=== PATIENT | female | born 1970 ===

== ENCOUNTER 2018-04-14 07:25 | Inpatient (IN) | payer BC, SELFPAY ==
[2018-04-14 07:52] VITALS: BMI 33.4
[2018-04-14] MEDS ORDERED: Zolpidem Tartrate 5 MG TAB PO PRN (09:15)
[2018-04-14] MEDS ORDERED: HYDROcodone/Acetaminophen 5/325 mg Tablet PO PRN (09:16)
[2018-04-14 09:31] LABS: #Eosinphils 0.2 thou/uL (0.0-0.7); #Lymphocytes 1.8 thou/uL (1.20-3.40); #Neutrophils 13.7 thou/uL (1.40-6.50); %Basophils 0.2 % (0.0-1.0); %Eosinophils 0.9 % (0.0-10.0); %Lymphocytes 10.7 % (21.0-51.0); %Monocytes 6.1 % (0.0-10.0); %Neutrophils 82.2 % (42.0-75.0); Hemoglobin 12.6 g/dL (12.0-16.0); Mean Corpuscular HGB CONC 33.7 g/dL (32.0-36.0); Mean Corpuscular Hemoglobin 30.9 pg (27.0-31.0); Mean Corpuscular Volume 91.9 fl (81.0-99.0); Mean Platelet Volume 8.4 fL (7.4-10.4); Platelet Count 224 thou/uL (130-400); RBC Distribution Width 11.6 % (11.5-14.5); Red Blood Cell (RBC) Count 4.09 mill/uL (4.20-5.40); White Blood Cell (WBC) Count 16.7 thou/uL (4.8-10.8)
[2018-04-14] MEDS ORDERED: Ondansetron HCl/PF 4 MG/2 ML Vial IVP PRN (09:42)
[2018-04-14] MEDS: Vancomycin HCl 1 GM in Premix Bag 1 BAG IVPB SCH ×2 (10:43→20:27)
--- NOTE | 2018-04-14 11:01 | ULT ---
SOFT TISSUE ULTRASOUND: HISTORY: Possible abscess. 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 TECHNIQUE: Sagittal and transverse imaging of the soft tissues is performed. FINDINGS: Static image demonstrates soft tissue edema. No evidence of a well-formed abscess. IMPRESSION: No sonographic evidence of abscess. There is evidence of edema. POS: [facility]
[2018-04-14] MEDS: HYDROcodone/Acetaminophen 5/325 mg Tablet PO PRN (12:00)
[2018-04-14] MEDS ORDERED: Clindamycin/D5W 600 MG in Premix Bag 1 BAG IVPB SCH (14:00)
[2018-04-14] MEDS: Ondansetron HCl/PF 4 MG/2 ML Vial IVP PRN (16:46)
--- NOTE | 2018-04-14 19:02 | CON ---
DATE OF CONSULTATION: 04/14/2018 REASON FOR CONSULTATION: Inflammatory process, upper mid back region. HISTORY OF PRESENT ILLNESS: A 47-year-old patient who has a history of prior skin abscesses in the p ast, otherwise fairly healthy general status. She had recently vacationed in [place] with family. Du ring the stay, she noticed what she describes as a pimple in the back. She has her daughter to squee ze it. Following that, she developed a progression of inflammatory changes. On the way back, she en ded up in [facility] and she stayed there in observation for about 24 hours. She recei orlin vancomycin, clindamycin, and pain medication, IV fluids. The patient had an ultrasound done ther e which showed cellulitis with some hypodensity, but no focal abscess. CT scan with similar findings . There is evidence of steatohepatitis. Initial white cell count 23,000 and went down to 18,000. C reatinine was 0.6. Eventually because of persistence of symptoms, patient was transferred to [facility]. She is currently receiving clindamycin and vancomycin. She is not feeling very well, a little bit of headaches, no visual symptoms, sore throat, odynophagia, dysphagia. Pain in the area of inflammatory change in the upper mid back region. No lymphadenopathy. No joint inflammatory act ivity. S1, S2, regular rate. Abdomen is soft, not distended or tender. No ascites. No bladder dis tention. No other joint inflammatory activity. Neuro examination, nonfocal. PAST MEDICAL HISTORY: Skin abscesses in the past. ALLERGIES: Negative. CURRENT MEDICATIONS: Vancomycin, clindamycin, hydrocodone, IV fluids. FAMILY HISTORY: Noncontributory. SOCIAL HISTORY: Never a smoker. 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 PHYSICAL EXAMINATION: VITAL SIGNS: Temperature normal. BP 140/90, pulse 79, respirations 16-32, O2 sat 96%. GENERAL: Appears somewhat upset about the time that is taken to get better. No lymphadenopathy. SKIN: Shows the area of erythema with induration in the mid back region. This measures about 13 cm in length x 6 cm in width. There is one area where there is a small little incision made, but no thania inage is noted. It seems to have already closed. HEENT: Ocular movements conjugate. Oral cavity normal. NECK: Supple. LUNGS: With symmetric clear breath sounds. CARDIOVASCULAR: S1, S2, regular rate without murmurs. No S3, S4. ABDOMEN: Soft and not distended or tender. No ascites. GENITOURINARY: No bladder distention or organomegaly. EXTREMITIES: No joint inflammatory activity. Pulses 2+ in dorsalis pedis. NEUROLOGIC: Nonfocal. LABORATORY DATA: White cell count 16.7, hemoglobin 12, platelets 224 with 82% neutrophils. The chem istry from [facility] was not remarkable. ASSESSMENT AND PLAN: History of prior skin abscesses, now with what appears to be another area of ph legmon turn into a skin abscess likely due to either methicillin-sensitive Staphylococcus aureus or m ethicillin-resistant Staphylococcus aureus. Continue vancomycin alone, discontinue clindamycin and a djust levels of vancomycin to a target trough 15-20 mcg/mL, patient most likely will need surgical de bridement. She does not want to have that done at this point in time. I offered surgical consultati on. The patient would like to wait.
[2018-04-14] MEDS: Fentanyl 100 MCG/2 ML VIAL SLOW IVP PRN (20:25)
[2018-04-14] MEDS: Doxycycline 100 MG CAP PO SCH (20:25)
[2018-04-15] MEDS: Ondansetron HCl/PF 4 MG/2 ML Vial IVP PRN ×4 (00:32→22:36)
[2018-04-15] MEDS: Fentanyl 100 MCG/2 ML VIAL SLOW IVP PRN ×5 (00:51→22:36)
[2018-04-15 04:55] LABS: #Eosinphils 0.2 thou/uL (0.0-0.7); #Monocytes 0.9 thou/uL (0.11-0.59); #Neutrophils 10.8 thou/uL (1.40-6.50); %Basophils 0.3 % (0.0-1.0); %Eosinophils 1.5 % (0.0-10.0); %Monocytes 6.2 % (0.0-10.0); Hemoglobin 12.7 g/dL (12.0-16.0); Mean Corpuscular HGB CONC 33.5 g/dL (32.0-36.0); Mean Corpuscular Hemoglobin 30.7 pg (27.0-31.0); Mean Corpuscular Volume 91.7 fl (81.0-99.0); Mean Platelet Volume 8.6 fL (7.4-10.4); Platelet Count 259 thou/uL (130-400); RBC Distribution Width 11.6 % (11.5-14.5); Red Blood Cell (RBC) Count 4.15 mill/uL (4.20-5.40)
[2018-04-15 05:10] LABS: Anion Gap 12 mmol/L (10-20); BUN (Urea Nitrogen) 4 mg/dL (7.0-18.7); Calc. Creatinine Clearance 128 mL/min (70-130); Carbon Dioxide 23 mmol/L (22-29); Chloride 104 mmol/L (98-107); Estimated GFR-MDRD 84; Glucose 218 mg/dL (70-105); Potassium 3.9 mmol/L (3.5-5.1); Sodium 135 mmol/L (136-145)
[2018-04-15] MEDS: Doxycycline 100 MG CAP PO SCH ×2 (08:19→20:21)
[2018-04-15 09:14] LABS: Vancomycin, Trough 4.4 ug/mL
[2018-04-15] MEDS: Vancomycin HCl 1 GM in Premix Bag 1 BAG IVPB SCH (10:53)
--- NOTE | 2018-04-15 11:15 | HP ---
DATE OF ADMISSION: 04/14/2018 CHIEF COMPLAINT: Cellulitis/abscess right shoulder. HISTORY OF PRESENT ILLNESS: The patient is a 47-year-old female who prior to going to [facility] developed a pimple in the middle of her back. She has had these in the past. Her daughter expressed with the contents. She went ahead to [facility] and did swim in the____ ocean, they went into the underground pools there in [facility]. She wore a LifeVest and equipment was not very clean or sterile. She started developing the fever, came back to the [facility] and came [facility] for further care and evaluation. There, her white count on presentation was 28,000. She had a patch of erythema and redness on the right shoulder and the wound has stayed open that was developed by the daughter and it was oozing serosanguineous purulent material. The blood cultures were taken and antibiotics begun. When it was evident that the patient will need to stay more than a few hours, Dr. Nguyen was consulted for observation service there and employed IV vancomycin 1 gram q.12 hours, clindamycin 900 mg q.8 hours and doxycycline 100 mg b.i.d. This persisted for the next 24 hours trying to get improvement. During this time, the white count went down to 25, 000 then 23,000, but the patch of erythema and induration did not shrink and in fact enlarged somewhat, reattempts to I&D were unsuccessful through the small incision such that it was felt it would be better to put her in the hospital for further evaluation and treatment. On arrival to [place], her white count had come down to 18,000, but the patch of erythema, edema, and pain persisted. She was requiring hydrocodone and intermittent IV medication for pain management. PAST MEDICAL HISTORY: Significant for prior episodes of abscesses that were incised and drained in her past. She has a history of hypothyroidism. Her immunizations are up to date. PAST SURGICAL HISTORY: Includes appendectomy, section, cholecystectomy. FAMILY HISTORY: Noncontributory. SOCIAL HISTORY: She has never smoked. She does not drink alcohol and does not use illicit drugs. REVIEW OF SYSTEMS: Noncontributory. PHYSICAL EXAMINATION: VITAL SIGNS: At the time of admission, blood pressure 142/97, pulse 80, temperature 98.1, respirations 16, weight 188 pounds. GENERAL: This is a well-developed, well-nourished female, alert, oriented, and cooperative. HEENT: Normocephalic and atraumatic. Pupils equal, round, and reactive to light. Extraocular muscles are intact. TMs, nares, pharynx are clear. NECK: Supple. CHEST: Clear to auscultation. BACK: Reveals area of induration 4 cm x 8 cm indurated with peau d'orange skin texturing. No specific area of pointing available at this time. The patch is red, tender and warm. HEART: Regular rate and rhythm without murmur. BREAST: Deferred. ABDOMEN: Soft, nontender, without hepatosplenomegaly. GENITOURINARY: Deferred. EXTREMITIES: Without clubbing, cyanosis, edema. Normal range of motion present. SKIN: With the aforementioned changes in the back. NEUROLOGIC: Cranial nerves are intact. Gait normal. Sensory exam is intact. Mental status clear. Cerebellar function is intact. LABORATORY DATA: The lab work on admission showed WBC 16.7, hemoglobin 12.6, hematocrit 37.6 with platelets of 224. A pH at [facility] 7.3, pCO2 of 43.6. Lactate 1.9. Sodium 137, potassium 3.8, chloride 104, glucose 224, BUN 9 , creatinine 0.7. CT scans show soft tissue induration in the area of the infection and this was confirmed by ultrasound at [facility]. No specific areas of pocket accumulation of pus at this time. ASSESSMENT: Abscess/cellulitis right shoulder resistant to outpatient treatment. PLAN: Infectious Disease consultation with Dr. Machado has been obtained and his recommendation is to reduce antibiotic coverage simply down to vancomycin. Pain management, serial reevaluation and if there is failure to improve, we will get surgical consultation. [facility] [address] [facility]
--- NOTE | 2018-04-15 11:46 | PRG ---
DATE OF SERVICE: 04/15/2018 SUBJECTIVE: The patient had a good night last night. She took a pain pill, she says at 12:00 and th en her pain came back at 06:30 in the morning. She was wanting to go home today; however, she unders tands that it is too early to go home. If she goes home, she will come back in the hospital. She is tolerating her antibiotics good and her appetite is finally back. PHYSICAL EXAMINATION: GENERAL: Upon evaluation, she is awake, alert, and oriented to person, place and time. VITAL SIGNS: Blood pressure 140/80, pulse 90, respiratory rate 18, temperature 99. HEENT: Unremarkable. No arcus senilis or xanthelasma. NECK: Supple with no increased JVP or carotid bruit. Carotid had good upstroke with no thyromegaly. COR: Regular rate and rhythm. CHEST: Symmetrical. Clear to auscultation and percussion. ABDOMEN: Soft and nontender with normoactive bowel sounds. There is no bruit or organomegaly. EXTREMITIES: No edema or cyanosis. She had palpable pedal pulses. SKIN: On the posterior back, she got a large area that is tender. That is warm with erythematous. There was a thin marking around it. She does have less erythema than yesterday. NEUROLOGIC: She is awake, alert, and oriented to person, place, and time. LABORATORY DATA: White blood cell 15,000. CMP showing sodium of 135. ASSESSMENT: 1. Cellulitis/abscess. 2. History of skin abscess in the past. PLAN: Dr. Machado did come by and see the patient in consultation. He did agree with continuing vanco mycin. He did feel like most likely the patient would need a surgical debridement. She does not wan t to have it done this time and patient said she would like to wait. I will follow up with lab in morning and continue pain medication and revaluate her tomorrow. All questions answered to the pat ient's satisfaction. This is THIAGO Mg-Jun dictating for Hua Nguyen M.D.
[2018-04-15] MEDS: Vancomycin HCl 1.5 GM in Sodium Chloride 0.9% 250 ML 300 ML IVPB SCH ×2 (12:24→22:37)
[2018-04-16 05:37] LABS: #Basophils 0.1 thou/uL (0.0-0.2); #Eosinphils 0.3 thou/uL (0.0-0.7); #Lymphocytes 3.1 thou/uL (1.20-3.40); #Monocytes 0.9 thou/uL (0.11-0.59); %Basophils 0.6 % (0.0-1.0); %Eosinophils 2.2 % (0.0-10.0); %Lymphocytes 25.5 % (21.0-51.0); %Neutrophils 64.8 % (42.0-75.0); Hemoglobin 12.7 g/dL (12.0-16.0); Mean Corpuscular HGB CONC 33.5 g/dL (32.0-36.0); Mean Corpuscular Hemoglobin 30.8 pg (27.0-31.0); Mean Corpuscular Volume 91.8 fl (81.0-99.0); Mean Platelet Volume 8.2 fL (7.4-10.4); Platelet Count 278 thou/uL (130-400); RBC Distribution Width 11.6 % (11.5-14.5); Red Blood Cell (RBC) Count 4.14 mill/uL (4.20-5.40); White Blood Cell (WBC) Count 12.3 thou/uL (4.8-10.8)
[2018-04-16 05:49] LABS: ALT (SGPT) 32 U/L (8-55); AST (SGOT) 26 U/L (5-34); Albumin 3.4 g/dL (3.5-5.0); Alkaline Phosphatase 109 U/L (40-150); Anion Gap 8 mmol/L (10-20); BUN (Urea Nitrogen) 6 mg/dL (7.0-18.7); Bilirubin, Total 0.2 mg/dL (0.2-1.2); Calc. Creatinine Clearance 127 mL/min (70-130); Carbon Dioxide 27 mmol/L (22-29); Chloride 105 mmol/L (98-107); Estimated GFR-MDRD 83; Globulin 3.2 g/dL (2.4-3.5); Glucose 217 mg/dL (70-105); Potassium 4.2 mmol/L (3.5-5.1); Protein, Total 6.6 g/dL (6.0-8.3); Sodium 136 mmol/L (136-145)
[2018-04-16] MEDS: Doxycycline 100 MG CAP PO SCH ×2 (07:50→20:44)
[2018-04-16] MEDS ORDERED: Acetaminophen/Codeine 30-300mg Tablet PO PRN (09:17)
--- NOTE | 2018-04-16 10:26 | PRG ---
This is THIAGO Mg-Jun, dictating for Hua Nguyen M.D. DATE OF SERVICE: 04/16/2018 SUBJECTIVE: The patient had a good night. She has still nausea with pain medicine. Her appetite is okay. PHYSICAL EXAMINATION: VITAL SIGNS: Upon evaluation, blood pressure 138/86, pulse 70, respirations 18, she is afebrile. NECK: Supple with no increased JVP or carotid bruit. Carotid had good upstroke, no thyromegaly. COR: Regular rate and rhythm. CHEST: Symmetrical. Clear to auscultation and percussion. ABDOMEN: Soft, nontender with normoactive bowel sounds. No bruit or organomegaly. EXTREMITIES: No edema or cyanosis. She had palpable pedal pulses. SKIN: Her posterior back still has a large area that is red, it is warm, it is decreased in size, it is tender to touch. NEUROLOGIC: She is awake, alert and oriented to person, place and time. LABORATORY DATA: Her CMP is normal except for blood sugar slightly being elevated at 217. Her white blood cell is 12.3. ASSESSMENT: 1. Abscess on posterior back. 2. Hyperglycemia. PLAN: 1. We will discontinue IV pain medication, begin Tylenol No. 3 one-two every 4-6 hours p.r.n. pain. 2. We will check a CBC in the morning as well as a hemoglobin A1c to rule out diabetes. Hopefully, the patient will be able to go home in the next few days.
[2018-04-16] MEDS: Vancomycin HCl 1.5 GM in Sodium Chloride 0.9% 250 ML 300 ML IVPB SCH ×3 (10:51→23:09)
[2018-04-16] MEDS: Ondansetron HCl/PF 4 MG/2 ML Vial IVP PRN ×2 (11:14→20:59)
[2018-04-16] MEDS: Acetaminophen/Codeine 30-300mg Tablet PO PRN ×2 (11:15→20:59)
[2018-04-16 22:37] LABS: Vancomycin, Trough 8.1 ug/mL
[2018-04-17 05:32] LABS: #Basophils 0.1 thou/uL (0.0-0.2); #Eosinphils 0.3 thou/uL (0.0-0.7); #Lymphocytes 3.5 thou/uL (1.20-3.40); #Monocytes 0.9 thou/uL (0.11-0.59); #Neutrophils 7.4 thou/uL (1.40-6.50); %Eosinophils 2.8 % (0.0-10.0); %Lymphocytes 28.5 % (21.0-51.0); %Monocytes 7.1 % (0.0-10.0); %Neutrophils 60.6 % (42.0-75.0); Hemoglobin 13.1 g/dL (12.0-16.0); Mean Corpuscular HGB CONC 33.1 g/dL (32.0-36.0); Mean Corpuscular Hemoglobin 30.3 pg (27.0-31.0); Mean Corpuscular Volume 91.6 fl (81.0-99.0); Platelet Count 290 thou/uL (130-400); RBC Distribution Width 11.6 % (11.5-14.5); Red Blood Cell (RBC) Count 4.32 mill/uL (4.20-5.40); White Blood Cell (WBC) Count 12.2 thou/uL (4.8-10.8)
[2018-04-17 05:48] LABS: Hemoglobin A1c 8.1 % (4.0-6.0)
[2018-04-17] MEDS: Doxycycline 100 MG CAP PO SCH ×2 (08:11→20:14)
[2018-04-17] MEDS: Vancomycin HCl 1.5 GM in Sodium Chloride 0.9% 250 ML 300 ML IVPB SCH ×2 (08:11→16:41)
[2018-04-17] MEDS: Ondansetron HCl/PF 4 MG/2 ML Vial IVP PRN ×2 (09:11→18:08)
[2018-04-17] MEDS: Acetaminophen/Codeine 30-300mg Tablet PO PRN ×2 (09:12→18:07)
[2018-04-17] MEDS ORDERED: Dextrose 50% Abboject 50 ML SYRINGE IVP PRN (11:34)
[2018-04-17] MEDS ORDERED: Dextrose 5% in Water 1,000 ML IV PRN (11:34)
--- NOTE | 2018-04-17 11:40 | PRG ---
DATE OF SERVICE: 04/17/2018 SUBJECTIVE: The patient had a good night. Unfortunately, her white blood cell count did not go down . Her abscess on her back does look a little bit better; however, I am concerned with her being on v ancomycin 3 times a day that her white blood cell count did not go down any. She does have a history of prediabetes. I did notice she was hypoglycemic and I checked hemoglobin A1c that was found to be 8.1. The patient states she is noncompliant. The patient states she had a hemoglobin A1c of 6 and does see a doctor in [place] and refused metformin in the past and she did want to try diet or exerci se; however, she did not follow through with this. OBJECTIVE: GENERAL: Upon evaluation, she is awake, alert, and oriented to person, place and time. Her pain is under control. VITAL SIGNS: Vital signs are stable. She is afebrile. NECK: Supple with no increased JVP or carotid bruit. Carotid had good upstroke, no thyromegaly. COR: Regular rate and rhythm. CHEST: Symmetrical. Clear to auscultation and percussion. ABDOMEN: Soft, nontender with normoactive bowel sounds. There is no organomegaly. EXTREMITIES: No edema or cyanosis. Palpable pedal pulses. SKIN: The abscess on her back is still red, still warm, decreased in size and the color is not eryth ematous. NEUROLOGIC: She is awake, alert, oriented to person, place, and time. LABORATORY DATA: Her white blood cell count is 12.2. Her hemoglobin A1c is 8.1. ASSESSMENT: 1. Abscess/cellulitis, posterior back. 2. Diabetes. 3. Leukocytosis secondary to #1. PLAN: 1. The patient will be started on 1800 ADA diet. We will check blood sugars a.c. and at bedtime and use sliding scale insulin per protocol. 2. We will begin Metformin 500 mg every daily. 3. We will consult surgeon regarding possible incision and drainage. 4. We will check a CBC in the morning. 5. We will begin diabetic teaching. 6. All questions answered to the patient's satisfaction.
[2018-04-17] MEDS: Insulin Regular 300 UNITS/3 ML VIAL SC PRN (12:27)
--- NOTE | 2018-04-17 14:08 | CON ---
DATE OF CONSULTATION: 04/17/2018 CHIEF COMPLAINT: Back abscess. HISTORY OF PRESENT ILLNESS: This is a 47-year-old female with a history of hypothyroidism, who prese nts with a history of swelling and pain in her back. She developed more erythema, redness and swelli ng in the area associated with pain and fever, admitted to the hospital and placed on vancomycin by claudio markham primary team. She did have I and D as an outpatient with no significant purulence obtained. Her pain is now improved, but I have been consulted for definitive drainage. PAST MEDICAL HISTORY: Hypothyroidism, previous abscesses. PAST SURGICAL HISTORY: Appendectomy, and cholecystectomy. FAMILY HISTORY: Noncontributory for anesthesia related complication. SOCIAL HISTORY: She is nonsmoker, no drugs. Occasional alcohol. REVIEW OF SYSTEMS: Ten-system review of systems is otherwise negative unless described above. PHYSICAL EXAMINATION: VITAL SIGNS: Blood pressure is 138/93, pulse 77, respirations 18. She is afebrile. HEENT: Sclerae are anicteric. Oropharynx is clear. NECK: No lymphadenopathy. HEART: Regular rate and rhythm. ABDOMEN: Soft, nontender. EXTREMITIES: Examination of back shows there to be an indurated area with erythema across the right upper back and the subscapular area. No obvious fluctuance, bulla or crepitance. LABORATORY DATA: White cell count is 12 with a normal differential. ASSESSMENT: Cellulitis/abscess back. PLAN: We will reevaluate in the morning. I suspect I will put her on for I and D of this back absce ss in the morning.
--- NOTE | 2018-04-17 20:12 | PRG ---
DATE OF SERVICE: 04/17/2018 SUBJECTIVE: Ms. Menezes is feeling better. Pain is less in the back area. Dr. Richards has evaluated e patient and is planning I and D tomorrow. No headaches. No respiratory symptoms or abdominal pain . No diarrhea. OBJECTIVE: VITAL SIGNS: Essentially normal. O2 sat is a little bit down to 92% on room air. GENERAL: Appears in no distress. BACK: The area in the back about the same lengths and widths, bit softer, more violaceous color, les s tenderness. LUNGS: Clear. HEART: S1 and S2, regular rate. ABDOMEN: Soft, not distended. LABORATORY DATA: White cell count is 12.2, hemoglobin 13, platelets 290. Differential is pretty muc h normal. Chemistry remarkable for elevated glucose. Albumin is 3.4. Microbiology, we have no samp les at this point in time. ASSESSMENT AND DISCUSSION: Abscess/phlegmon in the back area. The patient is currently on vancomyci n and will continue observation, eventual incision and drainage tomorrow or the day after and then e discharge planning on oral antimicrobial therapy.
[2018-04-17 23:25] LABS: Vancomycin, Trough 19.6 ug/mL
[2018-04-17] MEDS ORDERED: Vancomycin HCl 1.25 GM in Sodium Chloride 0.9% 250 ML 250 ML IVPB SCH (23:59)
[2018-04-18] MEDS: Vancomycin HCl 1.25 GM in Sodium Chloride 0.9% 250 ML 250 ML IVPB SCH ×4 (00:18→23:32)
[2018-04-18] MEDS: Ondansetron HCl/PF 4 MG/2 ML Vial IVP PRN ×3 (02:59→21:31)
[2018-04-18] MEDS: Acetaminophen/Codeine 30-300mg Tablet PO PRN ×2 (03:00→21:31)
[2018-04-18 05:55] LABS: #Basophils 0.1 thou/uL (0.0-0.2); #Eosinphils 0.4 thou/uL (0.0-0.7); #Lymphocytes 3.5 thou/uL (1.20-3.40); #Neutrophils 8.2 thou/uL (1.40-6.50); %Basophils 0.5 % (0.0-1.0); %Eosinophils 2.9 % (0.0-10.0); %Lymphocytes 26.6 % (21.0-51.0); %Monocytes 7.9 % (0.0-10.0); %Neutrophils 62.2 % (42.0-75.0); Hemoglobin 13.2 g/dL (12.0-16.0); Mean Corpuscular HGB CONC 33.4 g/dL (32.0-36.0); Mean Corpuscular Hemoglobin 30.6 pg (27.0-31.0); Mean Corpuscular Volume 91.6 fl (81.0-99.0); Mean Platelet Volume 7.9 fL (7.4-10.4); Platelet Count 309 thou/uL (130-400); RBC Distribution Width 11.6 % (11.5-14.5); Red Blood Cell (RBC) Count 4.32 mill/uL (4.20-5.40); White Blood Cell (WBC) Count 13.2 thou/uL (4.8-10.8)
[2018-04-18] MEDS: metFORMIN 500 MG TAB PO SCH (08:19)
[2018-04-18] MEDS: Doxycycline 100 MG CAP PO SCH ×2 (08:22→20:08)
[2018-04-18] MEDS ORDERED: Ondansetron HCl/PF 4 MG/2 ML Vial ONE ×2 (11:09→12:39)
[2018-04-18] MEDS ORDERED: Glycopyrrolate 0.2 MG/ML 5 ML SYRINGE ONE (11:09)
[2018-04-18] MEDS ORDERED: Dexamethasone 20 MG/5 ML VIAL ONE (11:09)
[2018-04-18] MEDS ORDERED: Lidocaine 1% PF 5 ML VIAL ONE (11:09)
[2018-04-18] MEDS ORDERED: PROPOFOL 200 MG/20 ML VIAL ONE (11:09)
[2018-04-18] MEDS ORDERED: Midazolam HCl 2 mg/2 ml Vial ONE (11:52)
[2018-04-18] MEDS ORDERED: Fentanyl 100 MCG/2 ML VIAL ONE ×2 (11:52→14:28)
[2018-04-18] MEDS ORDERED: Bupivacaine/Epinephrine 0.25% 30 ML VIAL ONE (12:14)
[2018-04-18] MEDS ORDERED: Famotidine/PF 20 mg/2ml Vial ONE (12:40)
[2018-04-18] MEDS ORDERED: Promethazine HCl 25 MG/ML VIAL SLOW IVP PRN (13:38)
[2018-04-18] MEDS ORDERED: Meperidine HCl/PF 25 MG/ML VIAL SLOW IVP PRN (13:38)
[2018-04-18] MEDS ORDERED: Promethazine HCl 25 MG/ML VIAL ONE (14:28)
[2018-04-18] MEDS ORDERED: Morphine 4 MG/ML VIAL SLOW IVP PRN ×2 (14:46)
[2018-04-18] MEDS: Insulin Regular 300 UNITS/3 ML VIAL SC PRN (19:11)
[2018-04-18] MEDS ORDERED: Acetaminophen/Codeine 30-300mg Tablet PO PRN ×3 (19:41→20:06)
[2018-04-18] MEDS ORDERED: Apixaban 5 MG TAB PO SCH (21:00)
[2018-04-18] MEDS ORDERED: Atorvastatin Calcium 40 MG TAB PO SCH (21:00)
[2018-04-18 23:16] LABS: Vancomycin, Trough 15.8 ug/mL
[2018-04-19 04:58] LABS: #Basophils 0.1 thou/uL (0.0-0.2); #Eosinphils 0.1 thou/uL (0.0-0.7); #Lymphocytes 2.4 thou/uL (1.20-3.40); #Neutrophils 13.5 thou/uL (1.40-6.50); %Basophils 0.3 % (0.0-1.0); %Eosinophils 0.7 % (0.0-10.0); %Lymphocytes 13.8 % (21.0-51.0); %Neutrophils 79.2 % (42.0-75.0); Hemoglobin 13.5 g/dL (12.0-16.0); Mean Corpuscular HGB CONC 34.1 g/dL (32.0-36.0); Mean Corpuscular Hemoglobin 31.1 pg (27.0-31.0); Mean Corpuscular Volume 91.2 fl (81.0-99.0); Platelet Count 347 thou/uL (130-400); RBC Distribution Width 11.5 % (11.5-14.5); Red Blood Cell (RBC) Count 4.33 mill/uL (4.20-5.40); White Blood Cell (WBC) Count 17.1 thou/uL (4.8-10.8)
[2018-04-19 05:08] LABS: Anion Gap 9 mmol/L (10-20); BUN (Urea Nitrogen) 11 mg/dL (7.0-18.7); Calc. Creatinine Clearance 112 mL/min (70-130); Calcium 9.2 mg/dL (7.8-10.44); Carbon Dioxide 27 mmol/L (22-29); Chloride 103 mmol/L (98-107); Estimated GFR-MDRD 72; Glucose 238 mg/dL (70-105); Potassium 4.4 mmol/L (3.5-5.1); Sodium 135 mmol/L (136-145)
[2018-04-19] MEDS: Vancomycin HCl 1.25 GM in Sodium Chloride 0.9% 250 ML 250 ML IVPB SCH ×2 (08:26→17:20)
[2018-04-19] MEDS: metFORMIN 500 MG TAB PO SCH ×2 (08:26→17:20)
[2018-04-19] MEDS: Doxycycline 100 MG CAP PO SCH ×2 (08:26→20:41)
[2018-04-19] MEDS ORDERED: Metoprolol Tartrate 25 MG TAB PO SCH (09:00)
[2018-04-19] MEDS ORDERED: Meloxicam 7.5 MG TAB PO SCH (09:00)
[2018-04-19] MEDS ORDERED: Allopurinol 300 MG TAB PO SCH (09:00)
[2018-04-19] MEDS ORDERED: Ubidecarenone 50 MG CAP PO SCH (09:00)
[2018-04-19] MEDS ORDERED: Fish Oil 1,000 MG CAP PO SCH (09:00)
--- NOTE | 2018-04-19 09:19 | PRG ---
DATE OF SERVICE: 04/19/2018 SUBJECTIVE: The patient had a good night. She is not having to take much pain medication or nausea medication. She did undergo the I&D by Dr. Richards. Her appetite is okay. Her blood sugar is in th e 200s. Her white blood cell count has crept up again to 17,000. PHYSICAL EXAMINATION: GENERAL: Upon evaluation, she is awake, alert, and oriented to person, place and time. Her is at bedside. VITAL SIGNS: Blood pressure is 124/80, pulse 96, afebrile. NECK: Supple with no increased JVP or carotid bruit. Carotids had good upstroke, no thyromegaly. COR: Regular rate and rhythm. CHEST: Symmetrical. Clear to auscultation and percussion. ABDOMEN: Soft, nontender with normoactive bowel sounds. There is no bruit or organomegaly. EXTREMITIES: No edema or cyanosis. She had palpable pedal pulses. SKIN: On her back she has a dressing on, clean, dry, and intact. NEUROLOGIC: She is awake, alert, and oriented to person, place, and time. ASSESSMENT: 1. Abscess, status post incision and drainage. 2. Diabetes. 3. Leukocytosis secondary to above. PLAN: 1. The patient's metformin will be changed to 500 b.i.d. We will also follow up with CBC in the [facility]. 2. We will leave the antibiotics to Dr. Machado. We do not have the culture back, but her white blood cell count is trending up, so we may need to look at switching antibiotics. The patient verbalized understanding. All questions answered to her satisfaction.
[2018-04-19] MEDS: Ondansetron HCl/PF 4 MG/2 ML Vial IVP PRN (10:57)
[2018-04-19] MEDS: Acetaminophen/Codeine 30-300mg Tablet PO PRN (10:57)
[2018-04-19] MEDS: Insulin Regular 300 UNITS/3 ML VIAL SC PRN ×2 (12:57→17:20)
--- NOTE | 2018-04-19 13:35 | PDOC.GSPN ---
Surgery Progress Note: Subj - Subjective Narrative: Wound care was painful earlier but doing well now. Would like to restart her thyroid medicine Surgery Progress Note: Obj - Vital signs Vital signs: Vital Signs - Most Recent Temp Pulse Resp BP Pulse Ox 98.1 F 79 18 151/99 H 95 04/19/18 12:35 04/19/18 12:35 04/19/18 12:35 04/19/18 12:35 04/19/18 12:35 - Physical Exam General: no distress Wound: dressing clean,dry,intact Surgery Progress Note: Results - Labs Result Diagrams: 04/19/18 04:22 04/19/18 04:23 Lab results: Laboratory Results - last 24 hr 04/19/18 04/19/18 04/19/18 04:22 04:23 04:42 WBC 17.1 H RBC 4.33 Hgb 13.5 Hct 39.5 MCV 91.2 MCH 31.1 H MCHC 34.1 RDW 11.5 Plt Count 347 MPV 8.0 Neutrophils % 79.2 H Lymphocytes % 13.8 L Monocytes % 6.0 Eosinophils % 0.7 Basophils % 0.3 Neutrophils # 13.5 H Lymphocytes # 2.4 Monocytes # 1.0 H Eosinophils # 0.1 Basophils # 0.1 Sodium 135 L Potassium 4.4 Chloride 103 Carbon Dioxide 27 Anion Gap 9 L BUN 11 Creatinine 0.85 Estimated GFR (MDRD) 72 Glucose 238 H POC Glucose 234 H Calcium 9.2 04/19/18 11:36 WBC RBC Hgb Hct MCV MCH MCHC RDW Plt Count MPV Neutrophils % Lymphocytes % Monocytes % Eosinophils % Basophils % Neutrophils # Lymphocytes # Monocytes # Eosinophils # Basophils # Sodium Potassium Chloride Carbon Dioxide Anion Gap BUN Creatinine Estimated GFR (MDRD) Glucose POC Glucose 158 H Calcium Surgery Progress Note: A/P - Problem (1) Abscess of back Current Visit: Yes Code(s): L02.212 - CUTANEOUS ABSCESS OF BACK [ANY PART, EXCEPT BUTTOCK] Status: Acute - Plan Plan: POD 1, await cultures. Restarted her thryoid medicine.
--- NOTE | 2018-04-19 14:07 | OP ---
DATE OF PROCEDURE: 04/18/2018 SURGEON: Jorge Richards M.D. PREOPERATIVE DIAGNOSIS: Psoas abscess, back. POSTOPERATIVE DIAGNOSIS: Psoas abscess, back. PROCEDURE PERFORMED: Incision and drainage of cellulitis and abscess of back by Dr. iRchards without complication. SURGEON: Jorge Richards M.D. ANESTHESIA: General. ESTIMATED BLOOD LOSS: Minimal. COMPLICATIONS: None. FINDINGS: There is small amount of turbid-appearing fluid, but no gross purulence. TECHNIQUE: The patient was taken to the operating room and placed supine on the table. After genera l anesthetic was obtained, she was placed in prone position. Her back was prepped and draped in a st erile fashion. Over the most indurated part of the abscess, an elliptical incision was made and della p dissection was taken down into this cavity underneath. There was some turbid appearing fluid that was cultured. The cavity goes lateral towards a second indurated area. Here, a second counter incis ion was made. Both wounds were irrigated. There was no necrotic tissue. All loculations broken up. All wounds were packed using wet-to-dry saline-soaked gauze. The patient was en route to recovery in stable condition. All instrument counts, needle counts, lap counts are correct.
--- NOTE | 2018-04-19 17:03 | PRG ---
DATE OF SERVICE: 04/19/2018 SUBJECTIVE: The patient had I&D by Dr. Richards and has the 2 wounds packed. She has mild pain, but no respiratory symptoms, no chest pain, no abdominal pain, no diarrhea, no genitourinary symptoms. N o neurological symptoms. PHYSICAL EXAMINATION: VITAL SIGNS: Normal. Slight elevation in systolic blood pressure. GENERAL: Awake, alert, oriented. LUNGS: Clear. HEART: S1, S2, regular rate. ABDOMEN: Soft, not distended. EXTREMITIES: Moves all extremities equally. LABORATORY DATA: White cell count is 17.1, hemoglobin 13.5, platelets 347,000. Chemistry with a cre atinine of 0.85. Microbiology with pending cultures, Gram stain. No organisms seen. ASSESSMENT AND DISCUSSION: Abscess subcutaneous tissues of the upper back area, status post surgical incision and drainage. Staphylococcus aureus/methicillin-resistant Staphylococcus aureus most likel y scenario. We will switch her to Zyvox p.o. and consider discharge planning. Follow up in the clin ic.
[2018-04-19] MEDS ORDERED: Ibuprofen 200 MG TAB PO PRN (23:01)
[2018-04-20 04:51] LABS: #Basophils 0.1 thou/uL (0.0-0.2); #Eosinphils 0.4 thou/uL (0.0-0.7); #Lymphocytes 4.2 thou/uL (1.20-3.40); #Monocytes 1.1 thou/uL (0.11-0.59); #Neutrophils 9.1 thou/uL (1.40-6.50); %Basophils 0.6 % (0.0-1.0); %Eosinophils 2.7 % (0.0-10.0); %Lymphocytes 28.2 % (21.0-51.0); %Monocytes 7.7 % (0.0-10.0); %Neutrophils 60.8 % (42.0-75.0); Mean Corpuscular HGB CONC 33.4 g/dL (32.0-36.0); Mean Corpuscular Hemoglobin 30.8 pg (27.0-31.0); Mean Corpuscular Volume 92.2 fl (81.0-99.0); Mean Platelet Volume 8.1 fL (7.4-10.4); Platelet Count 325 thou/uL (130-400); RBC Distribution Width 11.6 % (11.5-14.5); Red Blood Cell (RBC) Count 4.22 mill/uL (4.20-5.40); White Blood Cell (WBC) Count 14.9 thou/uL (4.8-10.8)
--- NOTE | 2018-04-20 07:31 | DIS ---
DATE OF ADMISSION: 04/14/2018 DATE OF DISCHARGE: 04/20/2018 CHIEF COMPLAINT ON ADMISSION: Cellulitis and abscess to the right shoulder. History and physical have been previously dictated. I will resume from there with hospital course. HOSPITAL COURSE: The patient was placed in a medical bed where IV antibiotics were continued on a re gular basis, pain management was controlled by oral and IV medication. Dr. Machado was asked to see e patient in consultation right after admission. He saw the patient on 04/14/2018, and agreeing with the assessment, he trimmed down the antibiotic treatment to vancomycin, removing the clindamycin. O macie the next 24 hours, the patient did quite well spacing her pain medicines every 4-6 hours. She is wanting to go home, but understood it was necessary to continue her antibiotic treatment. By 2017, she continued to do well, still has some nausea with her pain medicine. Appetite was good. It was noted that her blood sugars were running high at 217 at that check and her white cell count had dropped to 12.3. Hemoglobin A1c was done and found to be 8.1, adding to the patient's diagnosis is a new diabetic, diabetic education was then ordered and the patient was placed on metformin. Dr. Duc jeronimo was asked to see the patient on 04/17/2018 due to persistence of induration and tenderness and pa in in the shoulder. His conclusion was that she would probably need a surgical incision and drainage of this abscess and it was scheduled for 04/18/2018. As mentioned on 04/18/2018, she was taken to t he operating room where incision and drainage of these 2 points of abscess on her back were performed . The patient tolerated the procedure well and came back from the recovery room in stable condition. On 04/19/2018, wound care opened, cleaned, repacked the wound. The patient tolerated this quite we ll. Her white count on that day was 17,000. Dr. Machado came about on 04/19/2018 and helped to assess her postoperatively, agreeing that she could probably be discharged the next day with Zyvox 600 b.i. d. By 04/20/2018, she had had a good night. Her white count did come down to 14.9. Her pain was mi nimal. She has had no fever. Her blood sugars were good and she was ready to be discharged home. DIAGNOSES: At the time of discharge, 1. Right shoulder abscess with cellulitis. 2. New non-insulin dependent diabetic. PLAN: Patient will be discharged home on Zyvox 600 b.i.d. for 10 days. She will daily clean and rep ack the wound. She will also be sent home on metformin 500 b.i.d. and lisinopril 5 mg every day. Yakelin woodard was given a prescription for glucometer and test strips to check her blood sugar daily. She will a lso have Tylenol #3 q.4 hours p.r.n. for pain management #30. She is to follow up with Dr. Nguyen in 7-10 days or sooner should there be any complications. Prior to discharge, her medicines were reconc iled as opposed to what she came in and what she will be discharged home on, each medication was addr essed. Time necessary to search the chart, examine the patient, licensed mental health counselor the patient, answer all thei r questions, then prepare the chart for discharge including discharge dictation came to 35 minutes an d she is discharged in stable condition.
[2018-04-20 07:42] VITALS: BP 140/96; TEMP 98
[2018-04-20] MEDS: Doxycycline 100 MG CAP PO SCH (08:22)
[2018-04-20] MEDS: metFORMIN 500 MG TAB PO SCH (08:22)
[2018-04-20] MEDS ORDERED: Linezolid 600 MG TAB PO SCH (09:00)
[2018-04-20] MEDS ORDERED: Thyroid 30 MG TAB PO SCH (09:00)
[2018-04-20] MEDS: HYDROcodone/Acetaminophen 5/325 mg Tablet PO PRN (09:35)
== END 2018-04-20 10:51 | disposition home or self-care (01) | DRG 579 ==
LOC: T4-B 07:25
PROVIDERS: ADMIT Specialist; ATTEND Specialist
PROC: 0K9F0ZZ Drainage of Right Trunk Muscle, Open Approach (ICD-10-PCS; principal; 2018-04-18)
DX: L02.212 Cutaneous abscess of back [any part, except buttock and flank] (principal); K68.12 Psoas muscle abscess; L03.113 Cellulitis of right upper limb; B95.62 Methicillin resistant Staphylococcus aureus infection as the cause of diseases classified elsewhere; D72.829 Elevated white blood cell count, unspecified; E03.9 Hypothyroidism, unspecified; E11.65 Type 2 diabetes mellitus with hyperglycemia
CPT/HCPCS: 36415; 36416; 76999; 80048; 80053; 80202; 83036; 85025; 87070; 87077; 87205; A4216; J0131; J1100; J1815; J2001; J2250; J2270; J2405; J2550; J2704; J3010; J3370; J3490; J7050; S0028